=== PATIENT | female | born 1995 | race American Indian/Alaskan Native ===

== ENCOUNTER 2022-01-05 14:04 | Emergency (ER) | payer SELFPAY | END 2022-01-05 15:52 | disposition left against medical advice (07) | LOC: ED 14:04 | DX: T78.40XA Allergy, unspecified, initial encounter (principal); Z53.21 Procedure and treatment not carried out due to patient leaving prior to being seen by health care provider; X58.XXXA Exposure to other specified factors, initial encounter ==